=== PATIENT | male | born 1980 ===

== ENCOUNTER → 2023-10-01 12:04 | Outpatient (REF) | payer BC, SELFPAY | LOC: HWRAD 12:04 | PROVIDERS: ATTENDING PHYSICIAN Nurse Practitioner Family | DX: M54.42 Lumbago with sciatica, left side (principal) | CPT/HCPCS: 72110; 72220 ==

== ENCOUNTER → 2023-10-02 08:08 | Outpatient (REF) | payer BC, SELFPAY | LOC: MRI 08:08 | PROVIDERS: ATTENDING PHYSICIAN Nurse Practitioner Family | DX: M54.42 Lumbago with sciatica, left side (principal); R20.0 Anesthesia of skin | CPT/HCPCS: 72148 ==